=== PATIENT | female | born 1960 | race Native Hawaiian/Other Pacific Islander ===

== ENCOUNTER → 2017-02-07 | Outpatient (CLI) | payer OTHER | LOC: BRMIMAGING 08:25 | PROVIDERS: ATTEND Family Medicine | CPT/HCPCS: G0202 ==

== ENCOUNTER → 2018-02-04 | Outpatient (CLI) | payer OTHER | LOC: BRMIMAGING 08:05 | PROVIDERS: ATTEND Family Medicine | DX: Z12.31 Encounter for screening mammogram for malignant neoplasm of breast (principal) ==